=== PATIENT | male | born 1975 | race Caucasian/White ===

== ENCOUNTER 2018-01-05 21:54 | Emergency (ER) | payer OTHER ==
[~2018-01-05] VITALS: Ht 193 cm; Wt 127.0 kg
[2018-01-05] MEDS ORDERED: TETANUS/DIPHTHERIA TOX ADULT 0.5 ML SYR IM ONE (22:00)
[2018-01-05] MEDS ORDERED: LIDOCAINE HCL 1% LOCAL INJ 20 ML VIAL INJ ONE (22:00)
[2018-01-05] MEDS ORDERED: BUPIVACAINE 0.5%/EPI 30 ML SDV INJ ONE ×2 (22:15→22:27)
[2018-01-05] MEDS ORDERED: SODIUM CHLORIDE 0.9% 1000ML 2,000 ML IV SCH (22:15)
[2018-01-05] MEDS ORDERED: NEOMYCIN/POLYMYX/BACITR OINT 0.9 GM PKT ONE (22:16)
[2018-01-05] MEDS ORDERED: SODIUM CHLORIDE 0.9% 1000ML 1,000 ML IV STA (22:21)
--- NOTE | 2018-01-05 22:48 | Diagnostic Imaging Report ---
KNEE LEFT THREE VIEWS Comparison: None Clinical history: \S\Dog bite, rule out FB. Has large laceration Findings: Mild tricompartmental degenerative changes. No fracture or dislocation. Moderate soft tissue swelling and gas with defect of the posterior thigh. No radiopaque foreign body. Impression: No acute bony abnormality a radiopaque foreign body. Signed by: Dr Cristina Stanford MD on 01/05/2018 10:44 PM
[2018-01-05] MEDS ORDERED: PIPER-TAZ 3.375 GM 50 ML IV STA (23:51)
[2018-01-06] MEDS ORDERED: SODIUM CHLORIDE 0.9% 1000ML 1,000 ML IV STA (22:21)
== END 2018-01-06 00:53 | disposition home or self-care (01) ==
LOC: ER 21:54
DX: S81.852A Open bite, left lower leg, initial encounter (principal); W54.0XXA Bitten by dog, initial encounter; Y99.0 Civilian activity done for income or pay; I10 Essential (primary) hypertension
CPT/HCPCS: 12004; 73562; 90471; 90714; 99284; J2001; J2543; J7030